=== PATIENT | male | born 1960 | race Caucasian/White ===

== ENCOUNTER → 2020-04-07 10:39 | Outpatient (CLI) | payer BC, SELFPAY ==
--- NOTE | 2020-04-06 17:10 | FLU_PTH ---
PATIENT: NILSA AMEZCUA LOC: [facility] U#:[id number] AGE/SX: 65/M ROOM: RE04/07/[address]: Dr. Juan Dutta MD : [id number] BED: DIS: SPEC #: [id number] RECD: 04/06/20 19:14 STATUS: BRAYDEN RERicardo #: [id number] GARY: 04/06/20 17:[address]: Juan Dutta DEPT: CYTOLOGY RECD BY: Pino Berry ENTERED: 04/07/20 11:35 SP TYPE: Fluid OTHR DR: No Primary Care Phys Tissues: Right ear, NOS Procedures: Special Stain Group II Special Stain Group I Surgery Specimen Level IV GMS Stain (control) Cytospin Fluid HEADER OPERATION: Not noted PRE-OP DIAGNOSIS: Progressive ulceration of ear canal TISSUE SUBMITTED: Right ear fluid for cytology DIAGNOSIS CYTOLOGY Right ear fluid for cytology (cytospin and cell block): Amorphous proteinaceous debris Fungal hyphae and budding forms. Rare reactive squamous epithelial cells. See comment. AM:art 04/11/20 COMMENT GMS stain with matched control supports the above diagnosis and shows fungal hyphae and budding forms (mixed type). Clinical correlation is suggested. Case has been reviewed in consultation with Dr. Fletcher who concurs with the above diagnosis. IDC:[facility] CYTOLOGY STUDY Slides are reviewed. CYTOLOGY GROSS Received is 40 ml of clear colorless fluid labeled with the patient's name and and designated per the requisition as right ear. Submitted for cytology preparation including cell block. / art 04/07/20 TC:5 CPT: 74801, 04589, 96121
== END ==
PROVIDERS: Referring Provider Otolaryngology; Visit Provider Otolaryngology
DX: L98.499 Non-pressure chronic ulcer of skin of other sites with unspecified severity (principal)
CPT/HCPCS: 88108; 88305; 88312; 88313

== ENCOUNTER → 2020-04-27 16:48 | Outpatient (CLI) | payer BC, SELFPAY | PROVIDERS: Referring Provider Otolaryngology; Visit Provider Otolaryngology | DX: B36.9 Superficial mycosis, unspecified (principal) | CPT/HCPCS: 87101 ==